=== PATIENT | female | born 1975 | race Caucasian/White ===

== ENCOUNTER 2018-04-09 18:44 | Emergency (ER) | payer BC ==
[~2018-04-09] VITALS: Ht 167.6 cm; Wt 84.1 kg
[2018-04-09 19:46] VITALS: BP 140/84
== END 2018-04-09 19:45 | disposition home or self-care (01) ==
LOC: ED 18:44
DX: T23.131A Burn of first degree of multiple right fingers (nail), not including thumb, initial encounter (principal); T23.151A Burn of first degree of right palm, initial encounter; X10.2XXA Contact with fats and cooking oils, initial encounter; Y92.009 Unspecified place in unspecified non-institutional (private) residence as the place of occurrence of the external cause
CPT/HCPCS: J2270